=== PATIENT | female | born 1975 | race Two or more races ===

== ENCOUNTER 2017-01-06 08:20 | Emergency (ER) | payer BC ==
[2017-01-06 09:12] LABS: BASOPHIL % 0.6 % (0-2); PLATELET COUNT 375 x10^3mcL (130-400)
[2017-01-06 09:23] LABS: CALCIUM 8.6 mg/dL (8.5-10.1); CARBON DIOXIDE 27.2 mmol/L (21-32); CHLORIDE SERUM 105 mmol/L (98-107); CREATININE SERUM 0.6 mg/dL (0.6-1.0); GFR1 > 60 mL/min; GLUCOSE SERUM 106 mg/dL (74-106); SODIUM SERUM 138 mmol/L (136-145)
[2017-01-06 09:27] LABS: ALBUMIN 3.7 g/dL (3.4-5.0); ALKALINE PHOSPHATASE 65 U/L (46-116); ALT/SGPT 17 U/L (14-59); AST/SGOT 18 U/L (15-37); BILIRUBIN TOTAL 0.36 mg/dL (0.20-1.00); CHOLESTEROL 178 mg/dL (<200); TOTAL PROTEIN, SERUM 7.1 g/dL (6.4-8.2)
[2017-01-06 09:53] LABS: AMPHETAMINE QUAL UR NONE DETECTED (NEG <=1000)
[2017-01-06 12:17] VITALS: BP 111/49
== END 2017-01-06 12:17 | disposition home or self-care (01) ==
LOC: ED 08:20
PROVIDERS: Emergency Medicine
DX: R42 Dizziness and giddiness (principal); R11.0 Nausea; R51 Headache
CPT/HCPCS: 80307; 83880; G0480; J2405; J8597

== ENCOUNTER 2019-03-28 13:38 | Emergency (ER) | payer BC ==
[~2019-03-28] VITALS: Ht 152.4 cm; Wt 74.8 kg
[2019-03-28 16:16] LABS: BASOPHIL % 0.4 % (0-2); PLATELET COUNT 348 x10^3mcL (130-400)
[2019-03-28 16:43] LABS: RED CELL DISTRIBUTION WIDTH 15.4 % (11.5-14.5)
[2019-03-28 17:14] VITALS: BP 105/81
== END 2019-03-28 17:21 | disposition home or self-care (01) ==
LOC: ED 13:38
PROVIDERS: Emergency Medicine
DX: D25.9 Leiomyoma of uterus, unspecified (principal); N93.9 Abnormal uterine and vaginal bleeding, unspecified; R55 Syncope and collapse; N92.0 Excessive and frequent menstruation with regular cycle; G43.909 Migraine, unspecified, not intractable, without status migrainosus; Z98.51 Tubal ligation status; Z98.890 Other specified postprocedural states
CPT/HCPCS: 36415

== ENCOUNTER 2019-04-01 19:44 | Inpatient (IN) | payer BC ==
[~2019-04-01] VITALS: Ht 152.4 cm; Wt 77.7 kg
--- NOTE | 2019-04-01 20:27 | NUR ---
PER PT SHE WAS AT [facility] TUESDAY FOR A RECTAL BLEED AND WAS DISCHARGED FOR "MENSTRUAL BLEEDING". PT STS THAT IT DID STOP BUT TODAY SHE WENT TO HAVE A BOWEL MOVEMENT THIS MOVING AND IT WAS FINE. THIS AFTERNOON PER PT SHE FELT SHE HAD TO USE THE RESTROOM AND IT SOUNDED LIKE "SHE WAS URINATING FROM HER RECTUM". PT STS THAT SHE HAS BEEN FEELING DIZZY AND FEELING HERSELF. UPON ASSESSMENT PT HAS A PALE COMPLEXION AND STS SHE IS NOT NORMALLY THIS COLOR. PT DENIES THAT SHE HAS ANY ABDOMINAL PAIN. NO VOMTIING BUT SOME NAUSEA. +BOWEL SOUNDS IN ALL 4 QUAD. PT IS ALERT AND ORIENTED, SPEAKING IN CLEAR AND FULL SENTENCES. PT STS SHE HAS HX OF FIBROIDS. VSS. RESP E/U. NO DISTRESS NOTED. WILL CONTINUE TO MONITOR.
--- NOTE | 2019-04-01 20:45 | NUR ---
SENIOR HR MANAGER RECTAL AND VAGINAL EXAM WITH DR. GUTIERREZ.
[2019-04-01 20:50] LABS: BASOPHIL % 0.5 % (0-2); PLATELET COUNT 408 x10^3mcL (130-400); RED CELL DISTRIBUTION WIDTH 16.3 % (11.5-14.5)
--- NOTE | 2019-04-01 21:01 | NUR ---
PT TAKEN TO CT.
[2019-04-01 21:14] LABS: CALCIUM 8.8 mg/dL (8.5-10.1); CARBON DIOXIDE 23.3 mmol/L (21-32); CHLORIDE SERUM 106 mmol/L (98-107); CREATININE SERUM 0.6 mg/dL (0.6-1.0); GFR1 > 60 mL/min; GLUCOSE SERUM 105 mg/dL (74-106); POTASSIUM SERUM 3.5 mmol/L (3.5-5.1); SODIUM SERUM 142 mmol/L (136-145)
[2019-04-01 21:19] LABS: ALBUMIN 3.6 g/dL (3.4-5.0); ALKALINE PHOSPHATASE 71 U/L (46-116); ALT/SGPT 24 U/L (14-59); AST/SGOT 14 U/L (15-37); BILIRUBIN TOTAL 0.2 mg/dL (0.20-1.00); TOTAL PROTEIN, SERUM 7.1 g/dL (6.4-8.2)
--- NOTE | 2019-04-01 22:10 | NUR ---
PT TAKEN UPSTAIRS BY EMT [facility] WHEELCHAIR.
[2019-04-01 22:13] LABS: UA SPECIFIC GRAVITY 1.015 (1.005-1.035); microscopic required? YES; urine erythrocyte 2+ (NEGATIVE)
--- NOTE | 2019-04-01 22:20 | NUR ---
RECEIVED PT FROM ED VIA [facility], CAME IN DUE TO BLOODY STOOLS SINCE TUESDAY, HAD SYNCOPAL EPISODE ON TUESDAY. AAOX4. C/O LIGHTHEADEDNESS. ABLE TO FOLLOW COMMANDS. SPEECH IS CLEAR. NO SOB NOTED, LUNG SOUNDS CTA. DENIES CHEST PAIN/PRESSURE. DENIES ABDOMINAL PAIN/NAUSEA/VOMITING. ABDOMEN IS SOFT. NO ACTIVE RECTAL BLEED NOTED AT THIS TIME. VOIDS. PALE. PULSES ARE PALPABLE. IV SITE PATENT AND INTACT. SIDE RAILS UPX2. MICHELL LIGHT ON REACH. PT'S AT BEDSIDE. ENDORSED TO PRIMARY NURSE TOREY FOR CONTINUITY OF CARE
[2019-04-01 22:22] LABS: AMPHETAMINE QUAL UR NONE DETECTED (See below)
[2019-04-01 22:24] VITALS: BP 128/75
[2019-04-01 22:25] LABS: CHOLESTEROL/HDL RATIO 4.5; MAGNESIUM 2.2 mg/dL (1.8-2.4); PHOSPHOROUS 3.1 mg/dL (2.5-4.9)
[2019-04-01 22:36] LABS: T3 TOTAL 1.56 ng/mL
[2019-04-01 22:38] VITALS: Ht 152.4 cm; Wt 77.7 kg
[2019-04-01 22:51] LABS: FREE T4 1.11 ng/dL (0.76-1.46); FREE THYROXINE INDEX 3.1 ug/dL (1.4-4.5); T4(THYROXINE) 9.1 ug/dL (4.7-13.3)
--- NOTE | 2019-04-02 00:17 | NUR ---
PT RESTING COMFORTABLY IN BED. FAMILY AT BEDSIDE. HEADACHE RESOLVING AFTER MEDICATIONS GIVEN. IV PATENT AND INTACT, FLUIDS STARTED PER EMAR. BOWEL PREP GIVEN. INSTRUCTED PT TO CALL WHENEVER SHE HAS HAD A BOWEL MOVEMENT. BED IN LOWEST POSITION. SIDE RAIL UPX2. CALL LIGHT WITHIN REACH. WILL CONTINUE TO MONITOR.
[2019-04-02 01:45] LABS: BASOPHIL % 0.5 % (0-2); PLATELET COUNT 464 x10^3mcL (130-400); RED CELL DISTRIBUTION WIDTH 15.3 % (11.5-14.5)
--- NOTE | 2019-04-02 05:00 | NUR ---
PT HAD BOWEL MOVEMENT, BRIGHT RED SEMI-LIQUID STOOLS NOTED. MADE AWARE. SECOND BOTTLE OF BOWEL PREP GIVEN. PT TOLERATED MED WELL. PT NPO EXCEPT MEDS SINCE MIDNIGHT. BED IN LOWEST POSITION. SIDE RAILS UPX2. CALL LIGHT WITHIN REACH. WILL CONTINUE TO MONITOR.
[2019-04-02 05:57] VITALS: BP 110/56
[2019-04-02 06:03] LABS: BASOPHIL % 0.4 % (0-2)
[2019-04-02 06:21] LABS: CALCIUM 8.5 mg/dL (8.5-10.1); CARBON DIOXIDE 24.6 mmol/L (21-32); CHLORIDE SERUM 109 mmol/L (98-107); CREATININE SERUM 0.6 mg/dL (0.6-1.0); GFR1 > 60 mL/min; GLUCOSE SERUM 108 mg/dL (74-106); POTASSIUM SERUM 3.5 mmol/L (3.5-5.1); SODIUM SERUM 144 mmol/L (136-145)
[2019-04-02 06:56] LABS: PLATELET COUNT 415 x10^3mcL (130-400); RED CELL DISTRIBUTION WIDTH 16.5 % (11.5-14.5)
--- NOTE | 2019-04-02 08:00 | NUR ---
RECEIVED PATIENT ALERT AND ORIENTED TIMES FOUR. DENIES DIZZINESS AT THIST IEM. NOTED THE BLOOD IN THE TOILET AND HAD RECEIVED BOWEL PREP OVERNIGHT. MIGUEL HAS AT BEDSIDE AND SUPPORTIVE WITH CARE. PATIENT REQUESTED CONSENT FOR THE COLONOSCOPY TODAY AND PLAN IS FOR IT BE BE DONE AROUND 11:00 AM PENG. MIGUEL ANGELITA CHECKLIST STARTED. SHE SATES SSHE HAS A HITORY OF THREEE C SECTIONS AND A TUBAL LIGATION. THE TEST IN THE ER SHOWS NEGATIVE AT THIS TIME. PATIENT HAS BEEN WITH H AND H AT 8.6/26 AND A 0.1 DIFFERANCE FROM LAST NIGHT. APTIENT ANGELITA PLT COUNT AT415, GLUCOSE AT 08, LDL AT124 AND AST AT 14. CT OF THE ABDOMEN SHOWS DIVERTICULOSIS WITHOUT DIVERTICULITIS. PATIENBT AHS URINE POSITIVE FOR BLOOD AND A FEW BACTERIA. PATIENT HAS BEEN AMBULATOYR AND PRIOR ADMIT HAD SOME SYNDOPAL EPISODES. SHE DENIES LIGHT HEADEDNESS AT THIS TIME. WILL CONTINUE TO MONITOR.
--- NOTE | 2019-04-02 09:25 | NUR ---
GAVE REPORT TO SVEN IN GI AND PATIENT HAS CHECKLIST COMPLETED AND THE CONSENTS SIGNED. ADVISED THE PATIENT OF THE PLAN OF CARE. PATIENT AHS BEEN NPO AND WITH STILL NOTED BLOODY OUTPUT FROM THE RECTUM. PATIENT HAS RECEIVED BOWEL PREP AND TOLERATED WELL. SPOUSE AT BEDSIDE AND SUPPORTIVE WITH CARE.
--- NOTE | 2019-04-02 14:13 | NUR ---
TOLERATED DIET AND FLUIDS SO FAR AND WILL BE GIVING FEROUS SULFATE INDICATED FOR LOW H AND H.
--- NOTE | 2019-04-02 18:54 | NUR ---
TYLENOL EFFECTIVE IN RELIEVING HEADACHE. GAVE PATIENT THE BIAXIN AND THE AMPICILLIN ORDERED. AT BEDSIDE AND NO ACTIVE BLEEDING NOTED.
--- NOTE | 2019-04-02 19:25 | NUR ---
PT RECIEVED FROM THE DAY SHIFT RN, PT IS ALERT AND ORIENTED X4. CALM AND COOPERATIVE WITH CARE. NO COMPLAINT OF PAIN AT THIS TIME. IS AT THE BEDSIDE, SAFETY AND COMFORT MEASURES MAINTAINED, BED IN LOWEST POSITION, CALL LIGHT WITHIN REACH.
[2019-04-02 20:10] VITALS: BP 97/57
--- NOTE | 2019-04-03 00:11 | NUR ---
PT IS AWAKE AND WATCHING TV AT THIS TIME. NO ACUTE DISTRESS NOTED. NO COMPLAINT OF PAIN AT THIS TIME. AT THE BEDSIDE. SAFETY AND COMFORT MEASURES MAINTAINED, BED IN LOWEST POSITION, CALL LIGHT WITHIN REACH.
--- NOTE | 2019-04-03 01:38 | NUR ---
PT IS RESTING IN BED WITH EYES CLOSED AT THIS TIME. NO ACUTE DISTRESS NOTED. PT HAS BEEN CALM AND COOPERATIVE WITH CARE. NO S/S OF PAIN NOTED AT THIS TIME. SAFETY AND COMFORT MEASURES MAINTAINED, BED IN LOWEST POSITION, CALL LIGHT WITHIN REACH.
--- NOTE | 2019-04-03 03:12 | NUR ---
PT IS AWAKE AND WATCHING TV AT THIS TIME. PT IS ALERT AND ORIENTED X4, CALM AND COOPERATIVE WITH CARE, NO ACUTE DISTRESS NOTED. PT HAS NO COMPLAINT OF PAIN AT THIS TIME. AT THE BEDSIDE, SAFETY AND COMFORT MEASURES MAINTAINED, BED IN LOWEST POSITION, CALL LIGHT WITHIN REACH.
--- NOTE | 2019-04-03 04:07 | NUR ---
PT IS AWAKE AND ALERT AT THIS TIME. NO COMPLAINT OF PAIN. AT THE BEDSIDE. SAFETY AND COMFORT MEASURES MAINTAINED, BED IN LOWEST POSITION, CALL LIGHT WITHIN REACH.
--- NOTE | 2019-04-03 05:10 | NUR ---
PT HAS RESTED IN INTERMITTENT INTERVALS THROUGHOUT THE SHIFT, PT HAS HAD NO COMPLAINT OF PAIN THROUGHOUT THE SHIFT, PT HAS BEEN CALM AND COOPERATIVE WITH CARE. NO ACUTE DISTRESS NOTED. PT IS ALERT AND ORIENTED X4, IV INFUSING AND INTACT. SAFETY AND COMFORT MEASURES MAINTAINED, BED IN LOWEST POSITION, CALL LIGHT WITHIN REACH. WILL ENDORSE CONTINUITY OF CARE TO THE ONCOMING RN.
[2019-04-03 05:57] VITALS: BP 99/62
--- NOTE | 2019-04-03 07:00 | NUR ---
RECEIVED BED SIDE REPORT FROM PAYROLL AUDITOR NURSE FRANK. MIGUEL A IS STABLE, NO APPARENT SIGNS OF PAIN, SOB, OR RESPIRATORY DISTRESS. PATIENT DENIES PAIN AT THIS TIME. RESPTING COMFORTABLY IN BED, AT BEDSDIE. IV TO LAC IS INFUSING NS AT 70ML/HR. NO EDEMA OR ERYTHEMA NOTED AT SITE. SCD'S AT BEDSIDE. BED IN LOW POSITION BED RAILS UP X2. CALL LIGHT WITHIN REACH. PATIENT DENIES OTHER NEEDS AT THIS TIME. SAFETY PRECAUTIONS IN PLACE.
[2019-04-03 07:22] LABS: BASOPHIL % 0.5 % (0-2)
[2019-04-03 07:27] LABS: PLATELET COUNT 416 x10^3mcL (130-400); RED CELL DISTRIBUTION WIDTH 16.6 % (11.5-14.5)
--- NOTE | 2019-04-03 07:30 | NUR ---
RECEIVED CALL FROM LAB. PATIENT WBC 14.1 PREVIOUS 9.8. WILL CONTACT
[2019-04-03 07:32] LABS: CALCIUM 8.6 mg/dL (8.5-10.1); CARBON DIOXIDE 22.3 mmol/L (21-32); CHLORIDE SERUM 110 mmol/L (98-107); CREATININE SERUM 0.6 mg/dL (0.6-1.0); GFR1 > 60 mL/min; GLUCOSE SERUM 101 mg/dL (74-106); MAGNESIUM 2.2 mg/dL (1.8-2.4); PHOSPHOROUS 3.1 mg/dL (2.5-4.9); POTASSIUM SERUM 3.7 mmol/L (3.5-5.1); SODIUM SERUM 144 mmol/L (136-145)
--- NOTE | 2019-04-03 07:45 | NUR ---
PAGED MD ANN TO MAKE AWARE OF WBC LABS. WAITING FOR MD TO CALL BACK.
[2019-04-03 09:00] VITALS: BP 111/68
--- NOTE | 2019-04-03 09:01 | NUR ---
ADMINISTERED MORNING MEDICATION. PATIENT TOLORATED WELL. PATIENT DEUCATED ON NEED FOR MEDICATION, AND ADVERSE EFFECTS TO REPORT. PATIENT VERBALIZED UNDERSTANDING. QUESTIONS AAND CONCERNS ADDRESSED. SAFETY PRECAUTIONS IN PLACE. PATIENT DENIES OTHER NEEDS AT THIS TIME.
--- NOTE | 2019-04-03 09:37 | NUR ---
MD SCHMID AT BEDSIDE. MADE AWARE OF WBC LABS. NO FURTHER ORDERS AT THIS TIME. PER MD SCHMID PATIENT ON PROPER MEDICATION.
--- NOTE | 2019-04-03 11:16 | NUR ---
MD PASTOR AND RESIDENT TEAM AT BEDSIDE
--- NOTE | 2019-04-03 11:29 | NUR ---
ADMINISTERED MORNING MEDICATION. PATIENT TOLORATED WELL. PATIENT EDUCATED ON NEED FOR MEDICATION, AND ADVERSE EFFECTS TO REPORT. PATIENT VERBALIZED UNDERSTANDING. QUESTIONS AAND CONCERNS ADDRESSED. SAFETY PRECAUTIONS IN PLACE. PATIENT DENIES OTHER NEEDS AT THIS TIME.
--- NOTE | 2019-04-03 11:46 | NUR ---
PATIENT C/O HEAD ACHE. PATIENT TOLORATED WELL. PATIENT EDUCATED ON NEED FOR MEDICATION, AND ADVERSE EFFECTS TO REPORT. PATIENT VERBALIZED UNDERSTANDING. QUESTIONS AAND CONCERNS ADDRESSED. SAFETY PRECAUTIONS IN PLACE. PATIENT DENIES OTHER NEEDS AT THIS TIME.
--- NOTE | 2019-04-03 13:01 | NUR ---
PATIENT WAS RECEIVING NS WITH 40 MEQ KCL. IV INFILTRATED. IV STOPPED AND REMOVED. PATIENT TOLORATED WELL. QUESTIONS AND CONCERNS ADDRESSED. SAFETY PRECAUTIONS IN PLACE.
--- NOTE | 2019-04-03 13:49 | NUR ---
REPLACED IV TO RIGHT AC. IV IS PATENT FLUSHES WELL. NO EDEMA OR ERYTHEMA NOTED TO SITE. PATIENT TOLORATED WELL. QUESTIONS AND CONCERNS ADDRESSED. SAFETY PRECAUTIONS IN PLACE.
--- NOTE | 2019-04-03 14:12 | NUR ---
DR. ANN HAD BEEN PAGED TO OBTAINED SIGNATURE ON BLOOD TRANSFUSION CONSENT WITH NO CALL BACK AT THIS TIME. RESIDENT CALL PHONE CALLED AND SPOKE WITH DR. QUINTERO PER MD THEY WILL COME UP TO FLOOR SOON THEY CAN. ATTENDING NURSE MADE AWARE.
[2019-04-03 15:39] VITALS: BP 98/55
--- NOTE | 2019-04-03 15:42 | NUR ---
PRE TRANSFUSION VITAL SIGNS TEMP 98.6; HR 109; RR17; OXYGEN 98% ON ROOM AIR.
--- NOTE | 2019-04-03 15:48 | NUR ---
ADMINISTERED MEDICATION PER EMAR FOR PRE TRANSFUSION. PATIENT EDUCATED ON NEED FOR MEDICATION, WELL ADVERSE EFFECTS TO REPORT. PATIENT VERBALIZED UNDERSTANDING OF EDUCATION. CALL LIGHT WITHIN REACH, BED IN LOW POSITION, BED RAILS UP X2. QUESTIONS AND CONCERNS ADDRESSED. SAFETY PRECAUTIONS IN PLACE.
--- NOTE | 2019-04-03 16:33 | NUR ---
VITAL SIGNS AFTER 15 MIN. TEMP 99.2; HR 103; BP 113/73; RR 18; OXYGEN 97% RA. PATIENT IS TOLORATING WELL. NO APPARENT SIGNS OF PAIN, ITCHINESS, SOB, OR RESPIRATORY DISTRESS. PATIENT DENIES CHEST PAIN, OR DIFFICULTY BREATHING. PATIENT DENIES OTHER NEEDS AT THIS TIME.
--- NOTE | 2019-04-03 18:19 | NUR ---
PATIENT IS STABLE NO APPARENT SIGNS OF PAIN, SOB, OR RESPIRATORY DISTRESS. PATIENT IS RECEIVEING ONE UNIT OF PRBC. FOR LOW H/H. PATIENT TOLORATING WELL. NO SIGNS OF REACTION TO THE INFUSION. DENIES ITCHINESS, FEVER, OR PAIN. ON ROOM AIR. SCD'S AT BEDSIDE. AT BEDSIDE. BED IN LOW POSITION, CALL LIGHT WITHIN REACH. QUESTIONS AND CONCERNS ADDRESSED, SAFETY PRECAUTIONS IN PLACE. WILL ENDORSE CARE TO SOFTWARE ENGINEER NURSE.
--- NOTE | 2019-04-03 18:49 | NUR ---
ADMINISTERED MEDICATION POST INFUSION. PATIENT EDUCATED ON NEED FOR MEDICATION, AND ADVERSE EFFECTS TO REPORT. PATIENT VERBALIZED UNDERSTANDING. QUESTIONS AND CONCERNS ADDRESSED. SAFETY PRECAUTIONS IN PLACE. PATIENT DENIES OTHER NEEDS AT THIS TIME. FAMILY AT BEDSIDE.
[2019-04-03 18:56] VITALS: BP 117/73
--- NOTE | 2019-04-03 18:58 | NUR ---
POST INFUSION VITALA TEMP. 98.9 HR 97, BP 117/73, RR 17, OXYGEN 97% RA.
--- NOTE | 2019-04-03 19:40 | NUR ---
PT. AWAKE, ALERT, ORIENTED X4. DENIES HEADACHE OR DIZZINESS. BREATH SOUNDS CLEAR THROUGHOUT LUNG HANNA, RESP. EVEN, UNLABORED. NO SOB NOTED. PT. ON RA. DENIES CHESTPAIN OR DISCOMFORT. NO EDEMA NOTED TO EXTREMITITES. PEDAL PULSES STRONG BLE. ABD. SOFT AND ROUND, BOWEL SOUNDS ACTIVE. DENIES ABD. PAIN, DENIES NAUSEA. PT. STATED THAT SHE HAS SOME INTER. RECTAL BLEEDING AT TIMES WHE SHE HAS BM OR WHEN SHE URINATES. DENIES ANY CLOTS PASSING. IVF NS + 40 MEQ KCL INFUSING WELL TO RAC AT 80CC/HR. AT BEDSIDE. CALL LIGHT REMAINS WITHIN REACH.
[2019-04-03 20:14] LABS: BASOPHIL % 0.3 % (0-2)
[2019-04-03 20:15] LABS: PLATELET COUNT 402 x10^3mcL (130-400); RED CELL DISTRIBUTION WIDTH 17.2 % (11.5-14.5)
[2019-04-03 21:01] VITALS: BP 114/77
--- NOTE | 2019-04-04 01:23 | NUR ---
PT. W/ EYES CLOSED. APPEARS TO BE SLEEPING. NO C/O PAIN THUS FAR. NO ACTIVE GI BLEEDING NOTED THUS FAR. IVF INFUSING WELL. CALL LIGHT WITHIN REACH.
[2019-04-04 06:17] VITALS: BP 114/73
--- NOTE | 2019-04-04 06:23 | NUR ---
PT. HAD UNEVENTFUL NIGHT. NO RECTAL BLEEDING NOTED THROUGHOUT NIGHT. DAY TIME RESIDENT, DR. ANN SAW PT. POSSIBLY DISCHARGE VERBALIZED TO PATIENT. IVF INFUSING WELL. SITE INTACT. CALL LIGHT WITHIN REACH. WILL ENDORSE PT. CARE TO INCOMING NURSE.
[2019-04-04 06:27] LABS: BASOPHIL % 0.4 % (0-2); PLATELET COUNT 397 x10^3mcL (130-400)
[2019-04-04 06:35] LABS: RED CELL DISTRIBUTION WIDTH 16.7 % (11.5-14.5)
[2019-04-04 06:47] LABS: CALCIUM 8.4 mg/dL (8.5-10.1); CARBON DIOXIDE 21.4 mmol/L (21-32); CHLORIDE SERUM 110 mmol/L (98-107); CREATININE SERUM 0.5 mg/dL (0.6-1.0); GFR1 > 60 mL/min; GLUCOSE SERUM 111 mg/dL (74-106); MAGNESIUM 2.2 mg/dL (1.8-2.4); PHOSPHOROUS 3.4 mg/dL (2.5-4.9); POTASSIUM SERUM 3.7 mmol/L (3.5-5.1); SODIUM SERUM 145 mmol/L (136-145)
--- NOTE | 2019-04-04 07:30 | NUR ---
RECEIVED HAND OFF REPORT FROM NOC RN. PATIENT AWAKE AND SITTING UP IN BED. NOT COMPLAINING OF PAIN. NO BLEEDING REPORTED. IV FLUSHES WELL. SCDS IN PLACE
--- NOTE | 2019-04-04 09:10 | NUR ---
ADMINISTERED MEDICATIONS PER MAR. PATIENT COMPLAINED OF HEADACHE, TYLENOL PRN ADMINISTERED. PATIENT REQUESTED THAT FEMALE NURSE ADMINISTERED CT MEDICATION. MARÍA ELENA METZGER ADMINISTERED. PATIENT HAD NO OTHER COMPLAINTS AT THIS TIME. FAMILY MEMBER AT BESIDE, CALL LIGHT WITHIN REACH
[2019-04-04 09:25] VITALS: BP 117/72
--- NOTE | 2019-04-04 10:45 | NUR ---
PATIENT HEADACHE RETURNED INCREASING IN INTENSITY, NOW 7/10. UNABLE TO MEDICATE DUE TO NO PRN MEDICATION AVAILABLE. TREATED WITH DARKENING ROOM, AND GIVING ICEPACK FOR HEAD. WILL INFORM DR DURING ROUNDING
--- NOTE | 2019-04-04 12:30 | NUR ---
PATIENT CALLED TO SAY HER IV WAS HURTING. REPORTING PAIN TO RIGHT UPPER ARM ON PALPATION WITH SWELLING PRESENT. STOPPED FLUIDS AND REMOVED IV ACCESS TO RIGHT AC, CATH INTACT. PER PHYSICIANS DURING ROUNDS,PATIENT SHOULD BE CLEARN FOR DISCHARGE TODAY. NO OTHER IV MEDICATIONS ARE DUE AT [facility] TIME. PATIENT REQUESTED TO NOT HAVE AN IV UNLESS SHE NEEDED AN IV MEDICATION. AT BEDSIDE AND CALL LIGHT WITHIN REACH
--- NOTE | 2019-04-04 13:06 | NUR ---
ROUNDED ON PATIENT, STATING THAT IF CONSULTING DRS AGREE PATIENT WILL BE DISCHARGED HOME TODAY. PATIENT DID NOT BRING UP HEAD PAIN UNTIL AFTER DRS HAD LEFT ROOM. INFOMRED DR ANN OF PAIN AND REQUESTED AN ADDITIONAL MEDICATION FOR HEADACHE
--- NOTE | 2019-04-04 14:26 | NUR ---
ADMINISTERED MEDICATION PER MAR. PATIENT IS NOT COMPLAINING OF PAIN AT THIS TIME. WILL CONTINUE TO MONITOR. PATIENT REPORTED THAT SHE SPOKE WITH DR AQUINO AND HE WAS OKAY WITH HER BEING DISHCARGED
[2019-04-04] MEDS ORDERED: AMOXICILLIN500 M1 PO (15:26)
[2019-04-04] MEDS ORDERED: CLARITHROMYCIN500 M1 PO (15:27)
[2019-04-04 15:28] VITALS: BP 117/72
[2019-04-04] MEDS ORDERED: PANTOPRAZOLE SO40 M1 PO (15:28)
[2019-04-04] MEDS ORDERED: METP PO (15:29)
[2019-04-04] MEDS ORDERED: MIRALAX17 GM PO (15:30)
[2019-04-04] MEDS ORDERED: FERROUS SULFAT325 M2 PO (15:31)
--- NOTE | 2019-04-04 16:46 | NUR ---
IN PRESENCE OF , PROVIDED PATIENT TEACHING FOR DISCHARGE. PROVIDED PATIENT WITH COPY OF COLONOSOCOPY PHOTOS (SEALED IN PACKAGE), PRESCRIPTIONS, FOLLOW UP APPOINTMENTS WELL CONTACT FOR DR SCHMID FOR FOLLOW UP. PATIENT VERBALIZED UNDERSTANDING OF TEACHING, ALL QUESTIONS ANSWERED. ID BANDS REMOVED AND PATIENT ASSITED OFF UNIT BY COUNTER DISH CARRIER WITH ALL BELONGINGS.
== END 2019-04-04 17:03 | disposition home or self-care (01) | DRG 377 ==
LOC: ED 19:44 → MU 21:44
PROVIDERS: Emergency Medicine; Internal Medicine; Internal Medicine Gastroenterology; ADMIT Internal Medicine
PROC: 0DB68ZX Excision of Stomach, Via Natural or Artificial Opening Endoscopic, Diagnostic (ICD-10-PCS; principal; 2019-04-02 10:00)
PROC: 0DBN8ZZ Excision of Sigmoid Colon, Via Natural or Artificial Opening Endoscopic (ICD-10-PCS; 2019-04-02 10:00)
PROC: 30233N1 Transfusion of Nonautologous Red Blood Cells into Peripheral Vein, Percutaneous Approach (ICD-10-PCS; 2019-04-03)
DX: K57.31 Diverticulosis of large intestine without perforation or abscess with bleeding (principal); N17.0 Acute kidney failure with tubular necrosis; K29.71 Gastritis, unspecified, with bleeding; K64.8 Other hemorrhoids; D25.9 Leiomyoma of uterus, unspecified; G43.909 Migraine, unspecified, not intractable, without status migrainosus; E78.5 Hyperlipidemia, unspecified; D64.9 Anemia, unspecified; Z98.51 Tubal ligation status; Z98.891 History of uterine scar from previous surgery
CPT/HCPCS: 43235; 45378; 84439; G0378; J1200; J1610; J2250; J2310; J2916; J3010; J3480; J3490; J7030; J7050; P9016; Q0163